=== PATIENT | female | born 1995 | race American Indian/Alaskan Native ===

== ENCOUNTER 2021-01-13 07:52 | Emergency (ER) | payer SELFPAY ==
[2021-01-13] MEDS ORDERED: IBUPROFEN 600 MG TAB PO ONE (08:49)
--- NOTE | 2021-01-13 08:49 | Emergency Department Report ---
ED Extremity Problem HPI - General Chief complaint: Extremity Problem,Nontraumatic Stated complaint: RIGHT FOOT PAIN Time Seen by Provider: 01/13/21 08:40 Source: patient Mode of arrival: Ambulatory Limitations: No Limitations - History of Present Illness Initial comments: 25-year-old female presents to the ER today with complaints of right foot pain. She states that the pain is mainly to the lateral aspect of her right foot. She states that her symptoms started about 2 days ago. She does not recall injuring it. She states that she do do a lot of standing at work. She denies any apparent swelling, bruising or redness to the foot. She reports no other symptoms at this time. MD Complaint: joint paint, other (Right foot pain ) -: days(s) (2) - Related Data Previous Rx's Medication Instructions Recorded Last Taken Type metFORMIN [Glucophage] 500 mg PO QDAY #30 tab 07/06/18 01/13/21 Rx 500 Metformin HCl [metFORMIN] 500 mg PO BID #60 solution 07/14/19 01/13/21 Rx 500 Ibuprofen [Motrin] 800 mg PO Q8HR PRN #30 tablet 01/13/21 Unknown Rx Allergies Allergy/AdvReac Type Severity Reaction Status Date / Time No Known Allergies Allergy Verified 01/13/21 09:19 ED Review of Systems ROS: Stated complaint: RIGHT FOOT PAIN Other details as noted in HPI Comment: All other systems reviewed and negative Constitutional: no symptoms reported Eyes: denies: eye pain, eye discharge, vision change Respiratory: denies: cough, shortness of breath, wheezing Cardiovascular: denies: chest pain, palpitations Musculoskeletal: arthralgia. denies: joint swelling, myalgia Neurological: denies: headache, weakness, numbness, paresthesias, confusion ED Past Medical Hx - Past Medical History Previous Medical History?: Yes Hx Diabetes: Yes - Surgical History Past Surgical History?: No - Social History Smoking Status: Current Some Day Smoker Substance Use Type: None (Denies illicit drug use), Alcohol (Rarely) - Medications Home Medications: Home Medications Medication Instructions Recorded Confirmed Last Taken Type metFORMIN [Glucophage] 500 mg PO QDAY #30 tab 07/06/18 01/13/21 01/13/21 Rx 500 Metformin HCl [metFORMIN] 500 mg PO BID #60 solution 07/14/19 01/13/21 01/13/21 Rx 500 Ibuprofen [Motrin] 800 mg PO Q8HR PRN #30 tablet 01/13/21 Unknown Rx ED Physical Exam - General Limitations: No Limitations General appearance: alert, obese - Head Head exam: Present: atraumatic, normocephalic, normal inspection - Eye Eye exam: Present: normal appearance, PERRL, EOMI Pupils: Present: normal accommodation - Respiratory Respiratory exam: Present: normal lung sounds bilaterally. Absent: respiratory distress - Cardiovascular Cardiovascular Exam: Present: regular rate - Expanded Lower Extremity Exam Right Ankle exam: Present: normal inspection, full ROM, tenderness (Patient has tenderness to palpation below the lateral malleolus of the right ankle). Absent: swelling, abrasion, laceration, ecchymosis, deformity, crepidus, dislocation, erythema Foot/Toe exam: Present: full ROM, tenderness (Mild tenderness to palpation to the lateral aspect of the right heel). Absent: swelling, abrasion, laceration, deformity, dislocation, erythema, amputation, puncture wound, foreign body, tenderness at base of 5th metatarsal, nail avulsion, subungual hematoma Neuro vascular tendon exam: Present: no vascular compromise. Absent: motor deficit, sensory deficit, tendon deficit Gait: Positive: observed and normal - Neurological Exam Neurological exam: Present: alert, oriented X3, CN II-XII intact, normal gait - Psychiatric Psychiatric exam: Present: normal affect, normal mood ED Course Vital Signs 01/13/21 01/13/21 08:14 08:59 Temperature 98.3 F Pulse Rate 86 Respiratory 16 16 Rate Blood Pressure 130/83 O2 Sat by Pulse 99 Oximetry ED Medical Decision Making - Radiology Data Radiology results: report reviewed Patient: JAYDEN IVORY MR#: [id number] : 1995 Acct:[id number] Age/Sex: 25 / F ADM Date: 01/13/21 Loc: ED Attending Dr: Ordering Physician: THEE LIN Date of Service: 01/13/21 Procedure(s): XR ankle 3+V RT Accession Number(s): [id number] cc: THEE LIN Fluoro Time In Minutes: XR ankle 3+V RT INDICATION / CLINICAL INFORMATION: Ankle pain x 3 days. COMPARISON: None available. FINDINGS: BONES/JOINT(S): No acute fracture or subluxation. No significant degenerative changes. SOFT TISSUES: No significant abnormality. ADDITIONAL FINDINGS: None. Signer Name: Kenny Sanchez MD Signed: 01/13/2021 10:23 AM Workstation Name: [id number] Transcribed By: ALEX Dictated By: Kenny Sanchez MD Electronically Authenticated By: Kenny Sanchez MD Signed Date/Time: 01/13/21 1023 DD/ 102 TD/TT: Patient: JAYDEN IVORY MR#: [id number] : 1995 Acct:[id number] Age/Sex: 25 / F ADM Date: 01/13/21 Loc: ED Attending Dr: Ordering Physician: THEE LIN Date of Service: 01/13/21 Procedure(s): XR foot 3+V RT Accession Number(s): [id number] cc: THEE LIN Fluoro Time In Minutes: XR foot 3+V RT INDICATION / CLINICAL INFORMATION: Foot pain x 3 days. COMPARISON: None available. FINDINGS: BONES/JOINT(S): No acute fracture or subluxation. No significant degenerative changes. SOFT TISSUES: No significant abnormality. ADDITIONAL FINDINGS: None. Signer Name: Kenny Sanchez MD Signed: 01/13/2021 10:23 AM Workstation Name: [id number] Transcribed By: ALEX Dictated By: Kenny Sanchez MD Electronically Authenticated By: Kenny Sanchez MD Signed Date/Time: 01/13/21 1023 DD/ 1023 TD/TT: Critical care attestation.: If time is entered above; I have spent that time in minutes in the direct care of this critically ill patient, excluding procedure time. ED Disposition Clinical Impression: Ankle pain, right, Foot pain, right Disposition: DC-01 TO HOME OR SELFCARE Is pt being admited?: No Does the pt Need Aspirin: No Condition: Stable Instructions: Ankle Pain, Foot Pain Additional Instructions: I recommend rest, ice and elevating leg as often as possible for the next 2-3 days. Take the motrin as prescribed. 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 Return to the ER if your symptoms changes or worsens in any way. 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
--- NOTE | 2021-01-13 10:28 | XRay Report ---
XR ankle 3+V RT INDICATION / CLINICAL INFORMATION: Ankle pain x 3 days. COMPARISON: None available. FINDINGS: BONES/JOINT(S): No acute fracture or subluxation. No significant degenerative changes. SOFT TISSUES: No significant abnormality. ADDITIONAL FINDINGS: None. Signer Name: Kenny Sanchez MD Signed: 01/13/2021 10:23 AM Workstation Name: [email or web address]
--- NOTE | 2021-01-13 10:28 | XRay Report ---
XR foot 3+V RT INDICATION / CLINICAL INFORMATION: Foot pain x 3 days. COMPARISON: None available. FINDINGS: BONES/JOINT(S): No acute fracture or subluxation. No significant degenerative changes. SOFT TISSUES: No significant abnormality. ADDITIONAL FINDINGS: None. Signer Name: Kenny Sanchez MD Signed: 01/13/2021 10:23 AM Workstation Name: [email or web address]
[2021-01-13 11:13] VITALS: BP 128/76
== END 2021-01-13 11:12 | disposition home or self-care (01) ==
LOC: ED 07:52
DX: M25.571 Pain in right ankle and joints of right foot (principal); E11.9 Type 2 diabetes mellitus without complications; F17.200 Nicotine dependence, unspecified, uncomplicated; Z79.899 Other long term (current) drug therapy
CPT/HCPCS: 99283